=== PATIENT | male | born 1995 | race Caucasian/White ===

== ENCOUNTER 2016-07-07 17:07 | Emergency (ER) | payer BC ==
--- NOTE | 2016-07-07 17:51 | ERPHSYRPT ---
- History of Present Illness Time Seen by Provider: 07/07/16 17:45 Source: patient Exam Limitations: no limitations Patient Subjective Stated Complaint: PT REPORTS 2 DAYS AGO HE PUNCHED A STEEL DOOR WITH RIGHT HAND-REPROTS SWELLING ET PAIN TO RIGHT HAND-DENEIS NUMBNESS OR TINGLING-REPORTS FULL SENSATION Triage Nursing Assessment: PT PINK WARM ET DRY-SWELLING NOTED-RADIAL PULSE REGULAR ET STRONG-CAP REFILL WNL Physician History: This is a 20-year-old white male he arrives with complaint of pain and swelling of his right hand since punching a steel door yesterday at work. Patient states he became angry and punched a steel door he is having pain on his dorsal right hand proximal to the right third finger worse with movement he also has a approximately 1.5 cm eschar overlying the right metacarpal phalangeal joint #3. Patient is able to move his fingers he has sensation intact to his fingers he states he has pain worse with tight gripping Past medical history is negative. Past surgical history is negative. Occurred: yesterday Method of Injury: direct blow (punched a door) Extremities Pain Location: hand: right Modifying Factors: Improves With: movement Associated Symptoms: No back pain, No chills, No chest discomfort, No chest pain , No dyspnea, No fever, No jaw pain, No nausea, No neck pain, No sweating, No short of breath, No vomiting Allergies/Adverse Reactions: No Known Drug Allergies Allergy (Verified 07/07/16 17:15) Home Medications: No Home Meds 1 [facility] UD 02/05/16 [History] Hx Tetanus, Diphtheria Vaccination/Date Given: Yes Hx Influenza Vaccination/Date Given: No Hx Pneumococcal Vaccination/Date Given: No Immunizations Up to Date: Yes - Review of Systems Constitutional: No Fever, No Chills Eyes: No Symptoms Ears, Nose, & Throat: No Symptoms Respiratory: No Cough, No Dyspnea Cardiac: No Chest Pain, No Edema, No Syncope Abdominal/Gastrointestinal: No Abdominal Pain, No Nausea, No Vomiting, No Diarrhea Genitourinary Symptoms: No Dysuria Musculoskeletal: Other (pain right hand) Skin: Other (abrasion with eschar right hand overlying the dorsal third metacarpal phalangeal joint) Neurological: No Dizziness, No Focal Weakness, No Sensory Changes Psychological: No Symptoms Endocrine: No Symptoms All Other Systems: Reviewed and Negative - Past Medical History Pertinent Past Medical History: No - Past Surgical History Past Surgical History: No - Social History Smoking Status: Current every day smoker How long have you smoked: YRS Exposure to second hand smoke: No Drug Use: none Patient Lives Alone: No - Nursing Vital Signs Nursing Vital Signs: Initial Vital Signs Temperature 97.8 F Temperature Source Oral Pulse Rate 76 Respiratory Rate 16 Blood Pressure [] 124/59 Pain Intensity 2 - Physical Exam General Appearance: alert Eyes, Ears, Nose, Throat Exam: moist mucous membranes Neck Exam: non-tender, supple Cardiovascular/Respiratory Exam: chest non-tender, normal breath sounds, regular rate/rhythm, no respiratory distress Abdominal Exam: non-tender, No guarding Back Exam: normal inspection, No vertebral tenderness Shoulder Exam: normal inspection, non-tender, no evidence of injury, normal ROM Elbow/Forearm Exam: normal inspection, non-tender, no evidence of injury, normal ROM Wrist Exam: normal inspection, non-tender, no evidence of injury, normal ROM Hand Exam: No normal inspection (right hand tender dorsally just proximal to to the right third metacarpal phalangeal joint and including the right third metacarpal phalangeal joint, eschar 1.5 cm overlying dorsal right third MCP joint) Neuro/Tendon Exam: normal sensation, normal motor functions Mental Status Exam: alert, oriented x 3, cooperative Skin Exam: normal color, warm, dry SpO2 Interpretation: normal (99%) SpO2: 99 Oxygen Delivery: Room Air - Course Nursing assessment & vital signs reviewed: Yes - Radiology Exams Right Hand X-ray Interpretation: Interpreted by me, Negative, No Fracture, No Subluxation Ordered Tests: Active Orders 24 hr Category Date Time Status Splint STAT Care 07/07/16 18:06 Active Wound Care STAT Care 07/07/16 18:06 Active HAND (MINIMUM 3 VIEWS) Stat Exams 07/07/16 17:19 Taken Medication Summary Discontinued Medications Generic Name Dose Route Start Last Admin Trade Name Freq PRN Reason Stop Dose Admin Bacitracin 0.9 gm 07/07/16 18:06 07/07/16 18:23 Baciguent Packet TP 07/07/16 18:07 0.9 gm STAT ONE Administration Bacitracin Confirm 07/07/16 18:15 Baciguent Packet Administered 07/07/16 18:16 Dose 1 gm .ROUTE .STK-MED ONE - Progress Progress: improved Progress Note: 07/07/16 18:07 X-ray right hand negative fracture negative dislocation. Will go ahead and have nurses clean the abrasion/eschar on the dorsal right third metacarpal phalangeal joint. Will also have nurses apply a Velcro wristlet. Will write for Naprosyn for pain 07/07/16 18:08 Patient was offered pain medication in the emergency room he did not want any. - Departure Time of Disposition: 18:09 Departure Disposition: Home Clinical Impression: Contusion of right hand Qualifiers: Encounter type: initial encounter Qualified Code(s): S60.221A - Contusion of right hand, initial encounter Strain of right hand Qualifiers: Encounter type: initial encounter Qualified Code(s): S66.911A - Strain of unspecified muscle, fascia and tendon at wrist and hand level, right hand, initial encounter Abrasion of right hand Qualifiers: Encounter type: initial encounter Qualified Code(s): S60.511A - Abrasion of right hand, initial encounter Condition: Fair Critical Care Time: No Referrals: MAYNOR ROMERO [Primary Care Provider] - Additional Instructions: Return home. Clean area and apply bacitracin daily. Naprosyn 500 mg one orally twice a day with food as needed for pain #20. Ice and elevate right hand 24-48 hours. Follow-up with your company Dr. family Vega if problems symptoms no better in 48 hours or persist longer than one week. Return for acute distress or for severe symptoms. Prescriptions: Naproxen [Naprosyn] 500 mg PO BIDWMEALS #20 tablet
[2016-07-07 18:03] VITALS: BP 124/59; PULSE 76
[2016-07-07 18:04] VITALS: O2SAT 99
[2016-07-07] MEDS ORDERED: BACIGUENT PACKET TP ONE (18:06)
[2016-07-07] MEDS ORDERED: BACIGUENT PACKET ONE (18:15)
--- NOTE | 2016-07-08 08:08 | XRAY ---
Indication: Pain following punching injury. Comparison: None 3 views of the right hand obtained. No bony, articular, or soft tissue abnormalities.
== END 2016-07-07 18:33 | disposition home or self-care (01) ==
LOC: ED 17:07
DX: S60.221A Contusion of right hand, initial encounter (principal); S66.911A Strain of unspecified muscle, fascia and tendon at wrist and hand level, right hand, initial encounter; S60.511A Abrasion of right hand, initial encounter; M79.641 Pain in right hand; M79.89 Other specified soft tissue disorders; W22.09XA Striking against other stationary object, initial encounter; Y93.9 Activity, unspecified; Y92.69 Other specified industrial and construction area as the place of occurrence of the external cause; Y99.8 Other external cause status
CPT/HCPCS: 73130; 99283; 99284; L3908; A9270-GY

== ENCOUNTER 2017-04-07 20:51 | Emergency (ER) | payer BC ==
[2017-04-07 21:02] VITALS: O2SAT 98
[2017-04-07] MEDS ORDERED: Augmentin 875-125 Tablet PO ONE (21:09)
[2017-04-07] MEDS ORDERED: NORCO 5/325 MG PO ONE (21:09)
[2017-04-07] MEDS ORDERED: Augmentin 875-125 Tablet ONE (21:14)
[2017-04-07] MEDS ORDERED: NORCO 5/325 MG ONE (21:15)
--- NOTE | 2017-04-07 21:16 | ERPHSYRPT ---
- History of Present Illness Time Seen by Provider: 04/07/17 21:08 Source: patient Exam Limitations: no limitations Patient Subjective Stated Complaint: Pt states "I have this broken tooth and now there is this blister on my gums. I noticed it today" Triage Nursing Assessment: Pt alert and oriented X 3, skin pwd. Pt ambulates with an upright steady gait, able to speak in clear full sentences. Physician History: 21 y/o male comes to the ER with right upper tooth pain for the last few days. Pt describes the pain as sharp, constant, currently a 3/10 after taking advil. No fever or chills. Timing/Duration: gradual onset Severity: moderate ENT Location: dental Prearrival Treatment: over the counter meds Modifying Factors: Improves With: nothing Associated Symptoms: denies symptoms Allergies/Adverse Reactions: No Known Drug Allergies Allergy (Verified 07/07/16 17:15) Home Medications: No Home Meds [No Home Meds] 1 [facility] UD 02/05/16 [History] Hx Tetanus, Diphtheria Vaccination/Date Given: No Hx Influenza Vaccination/Date Given: No Hx Pneumococcal Vaccination/Date Given: No Immunizations Up to Date: Yes - Review of Systems Constitutional: No Fever, No Chills Eyes: No Symptoms Ears, Nose, & Throat: No Symptoms, Mouth Pain Respiratory: No Cough, No Dyspnea Cardiac: No Chest Pain, No Edema, No Syncope Abdominal/Gastrointestinal: No Abdominal Pain, No Nausea, No Vomiting, No Diarrhea Genitourinary Symptoms: No Dysuria Musculoskeletal: No Back Pain, No Neck Pain Skin: No Rash Neurological: No Dizziness, No Focal Weakness, No Sensory Changes Psychological: No Symptoms Endocrine: No Symptoms All Other Systems: Reviewed and Negative - Past Medical History Pertinent Past Medical History: No - Past Surgical History Past Surgical History: No - Social History Smoking Status: Current every day smoker How long have you smoked: 5 years Exposure to second hand smoke: Yes Drug Use: none Patient Lives Alone: No - Nursing Vital Signs Nursing Vital Signs: Initial Vital Signs Temperature 98.1 F 04/07/17 20:57 Pulse Rate 84 04/07/17 20:57 Respiratory Rate 18 04/07/17 20:57 Blood Pressure 146/100 04/07/17 20:57 O2 Sat by Pulse Oximetry 98 04/07/17 20:57 Pain Scale Pain Intensity 3 - Physical Exam General Appearance: no apparent distress, mild distress, alert Eye Exam: bilateral eye: PERRL, EOMI Nasal Exam: normal inspection Throat Exam: pharynx normal, moist mucus membranes, No tonsillar exudate Neck Exam: supple Cardiovascular/Respiratory Exam: normal breath sounds, regular rate/rhythm Abdominal Exam: non-tender, soft Neurologic Exam: alert, oriented x 3, sensation nml, No motor deficits Skin Exam: normal color, warm, dry SpO2: 98 Oxygen Delivery: Room Air - Course Nursing assessment & vital signs reviewed: Yes Ordered Tests: Medication Summary Discontinued Medications Generic Name Dose Route Start Last Admin Trade Name Freq PRN Reason Stop Dose Admin Hydrocodone Bitart/Acetaminophen 2 tab 04/07/17 21:09 [place] 5/325 Mg PO 04/07/17 21:10 SENT HOME W/ PATIENT ONE Amoxicillin/Clavulanate Potassium 875 mg 04/07/17 21:09 Augmentin 875-125 Tablet PO 04/07/17 21:10 STAT ONE - Progress Progress: unchanged Progress Note: 04/07/17 21:14 Pt will be started on augmentin and short course of norco for tooth infection. Pt has agreed to F/U with dentist next week. - Departure Time of Disposition: 21:15 Departure Disposition: Home Clinical Impression: Tooth infection Condition: Stable Critical Care Time: No Referrals: MAYNOR ROMERO [Primary Care Provider] - Instructions: Tooth Abscess (DC) Additional Instructions: Follow up with your dentist next week for further evaluation. Prescriptions: Amoxicillin/Potassium Clav [Augmentin 875-125 Tablet] 875 mg PO BID #19 tablet Hydrocodone Bit/Acetaminophen [[place] 5-325 Tablet] 1 each PO QID PRN #8 tablet MDD 4 PRN Reason: Pain
[2017-04-07 21:26] VITALS: BP 142/96; PULSE 80
== END 2017-04-07 21:38 | disposition home or self-care (01) ==
LOC: ED 20:51
DX: K04.7 Periapical abscess without sinus (principal); K08.89 Other specified disorders of teeth and supporting structures
CPT/HCPCS: 99283; A9270-GY

== ENCOUNTER 2018-03-03 23:54 | Emergency (ER) | payer BC ==
[2018-03-04 00:28] VITALS: O2SAT 99
[2018-03-04] MEDS ORDERED: XYLOCAINE 1% HCL 20 ML MDV ONE (00:43)
[2018-03-04] MEDS ORDERED: XYLOCAINE 1% HCL 20 ML MDV IJ ONE (00:44)
[2018-03-04] MEDS ORDERED: BACIGUENT PACKET TP ONE (00:44)
--- NOTE | 2018-03-04 00:44 | ERPHSYRPT ---
- History of Present Illness Time Seen by Provider: 03/04/18 00:35 Source: patient Exam Limitations: no limitations Patient Subjective Stated Complaint: Pt c/o swollen area to left side of face near jaw line. States that it has been present for appx one week. Pt has attempted to squeeze area and apply clearisil alcohol pads. States there was some pus like drainage on 03/02/18. Triage Nursing Assessment: Pt alert and oriented. Answers questions appropriately. Swollen, circular area noted to left side of face near jaw line. Several tiny scabs present on edematous area. No drainage at this time. Physician History: 22-year-old white male with history of dental just 5 , 1% abscesses in the past. Arrives with the complaint of a possible abscess on left side of his face for a week. He denies any fevers no nausea no vomiting. He has no tooth pain. Past medical history includes dental abscess. Timing/Duration: week(s) (one week) Severity: moderate Modifying Factors: Improves With: nothing Associated Symptoms: syncope, seizure, weakness, other (swelling left side of face x 1 week), No nausea, No vomiting, No abdominal pain, No shortness of breath, No heartburn, No diaphoresis, No cough, No chills, No chest pain, No fever (this), No headaches, No loss of appetite, No malaise, No rash Allergies/Adverse Reactions: No Known Drug Allergies Allergy (Verified 03/04/18 00:27) Hx Tetanus, Diphtheria Vaccination/Date Given: Yes Hx Influenza Vaccination/Date Given: No Hx Pneumococcal Vaccination/Date Given: No - Review of Systems Constitutional: No Fever, No Chills Eyes: No Symptoms Ears, Nose, & Throat: No Symptoms Respiratory: No Cough, No Dyspnea Cardiac: No Chest Pain, No Edema, No Syncope Abdominal/Gastrointestinal: No Abdominal Pain, No Nausea, No Vomiting, No Diarrhea Genitourinary Symptoms: No Dysuria Musculoskeletal: No Back Pain, No Neck Pain Skin: Other (swelling left side of jaw for 1 week) Neurological: No Dizziness, No Focal Weakness, No Sensory Changes Psychological: No Symptoms Endocrine: No Symptoms All Other Systems: Reviewed and Negative - Past Medical History Pertinent Past Medical History: No Neurological History: No Pertinent History ENT History: No Pertinent History Cardiac History: No Pertinent History Respiratory History: No Pertinent History Endocrine Medical History: No Pertinent History Musculoskeletal History: No Pertinent History GI Medical History: No Pertinent History History: No Pertinent History Psycho-Social History: No Pertinent History Male Reproductive Disorders: No Pertinent History - Past Surgical History Past Surgical History: Yes Neuro Surgical History: No Pertinent History Cardiac: No Pertinent History Respiratory: No Pertinent History Gastrointestinal: No Pertinent History Genitourinary: No Pertinent History Musculoskeletal: No Pertinent History Male Surgical History: No Pertinent History Other Surgical History: right dental abscess drained January 2017 - Social History Smoking Status: Current every day smoker How long have you smoked: 5 years Exposure to second hand smoke: Yes Drug Use: none Patient Lives Alone: No - Nursing Vital Signs Nursing Vital Signs: Initial Vital Signs Temperature 98.3 F 03/04/18 00:20 Pulse Rate 79 03/04/18 00:20 Respiratory Rate 16 03/04/18 00:20 Blood Pressure 144/89 03/04/18 00:20 O2 Sat by Pulse Oximetry 99 03/04/18 00:20 Pain Scale Pain Intensity 0 - Physical Exam General Appearance: no apparent distress, alert Eye Exam: PERRL/EOMI, eyes nml inspection Ears, Nose, Throat Exam: normal ENT inspection, TMs normal, pharynx normal, moist mucous membranes Neck Exam: normal inspection, non-tender, supple, full range of motion Respiratory Exam: normal breath sounds, lungs clear, No respiratory distress Cardiovascular Exam: regular rate/rhythm, normal heart sounds, normal peripheral pulses Gastrointestinal/Abdomen Exam: soft, normal bowel sounds, No tenderness, No mass Back Exam: normal inspection, normal range of motion, No CVA tenderness, No vertebral tenderness Extremity Exam: normal inspection, normal range of motion, pelvis stable Neurologic Exam: alert, oriented x 3, cooperative, 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 as tested, normal mood/affect, nml cerebellar function, nml station & gait, sensation nml, No motor deficits Skin Exam: other (1.5 cm soft swollen area left side of jaw) SpO2 Interpretation: normal (99%) SpO2: 99 Oxygen Delivery: Room Air - Course Nursing assessment & vital signs reviewed: Yes Ordered Tests: Active Orders 24 hr Category Date Time Status Wound Care STAT Care 03/04/18 00:44 Active Medication Summary Discontinued Medications Generic Name Dose Route Start Last Admin Trade Name Freq PRN Reason Stop Dose Admin Bacitracin Zinc 0.9 gm 03/04/18 00:44 Baciguent Packet TP 03/04/18 00:45 STAT ONE Lidocaine HCl 5 ml 03/04/18 00:44 Xylocaine 1% Hcl 20 Ml Mdv IJ 03/04/18 00:45 STAT ONE Lidocaine HCl Confirm 03/04/18 00:43 Xylocaine 1% Hcl 20 Ml Mdv Administered 03/04/18 00:44 Dose 5 ml .ROUTE .STK-MED ONE - Progress Progress: improved Progress Note: 03/04/18 01:01 Aspiration abscess left side of face overlying mandible. Left side of face sterilely cleansed by the patient's nurse. One percent lidocaine used for analgesia. #18-gauge needle used to aspirate abscess with production of moderate amount of purulent fluid. - Departure Time of Disposition: 01:02 Departure Disposition: Home Clinical Impression: Facial abscess Condition: Fair Critical Care Time: No Referrals: MAYNOR ROMERO [Primary Care Provider] - Additional Instructions: Return home. Keflex 500 mg orally every 6 hours 7 days Bactrim DS one orally twice a day for 10 days. Clean area and apply bacitracin daily. Follow-up with your family doctor. Return for acute distress or for severe symptoms. [place] as needed for pain. Prescriptions: Cephalexin Mh 500 mg [Keflex 500 mg] 500 mg PO Q6H #28 capsule Hydrocodone/Acetaminophen [[place] 5-325 Tablet] 1 tab PO Q4-6HPRN PRN #10 tablet MDD 6 tablets PRN Reason: Pain Smz/Tmp Ds Tablet [Bactrim Ds Tablet] 1 tab PO BID #20 tablet
[2018-03-04 01:06] VITALS: BP 119/102; PULSE 67
[2018-03-04] MEDS ORDERED: BACTRIM DS TABLET PO ONE ×2 (01:06→01:23)
[2018-03-04] MEDS ORDERED: BACIGUENT PACKET ONE (01:06)
[2018-03-04] MEDS ORDERED: KEFLEX 250 MG/5 ML SUSP PO ONE (01:06)
[2018-03-04] MEDS ORDERED: NORCO 5/325 MG PO ONE (01:06)
[2018-03-04] MEDS ORDERED: NORCO 5/325 MG ONE (01:23)
[2018-03-04] MEDS ORDERED: KEFLEX 500 MG ONE (01:23)
[2018-03-04] MEDS ORDERED: KEFLEX 500 MG PO ONE (01:33)
== END 2018-03-04 01:39 | disposition home or self-care (01) ==
LOC: ED 23:54
DX: L02.01 Cutaneous abscess of face (principal)
CPT/HCPCS: 10060; 87070; 87077; 87186; 96372; 99284; A9270-GY

== ENCOUNTER 2018-04-17 19:22 | Emergency (ER) | payer BC ==
--- NOTE | 2018-04-17 20:07 | ERPHSYRPT ---
- History of Present Illness Time Seen by Provider: 04/17/18 19:58 Source: patient Exam Limitations: no limitations Patient Subjective Stated Complaint: Dental pain Triage Nursing Assessment: Patient ambulated back to ED and transferred self to bed. Patient A+O X 3. Patient's skin pink, warm and dry. Patient complains of dental pain 6/10 to right upper tooth. Patient states he had an abscess drained in the same place 2016. Patient denies fever. Right side of face swollen. Right upper front tooth noted to be broken and decayed with gums red and swollen. Physician History: The patient is a 22-year-old male complaining of worsening right upper frontal dental pain and gum pain for 2 days. He has had a problem with this tooth 3 years ago. He has known dental caries. He denies fever or chills. He did not take anything for pain relief today. Timing/Duration: gradual onset, days (2) ENT Location: dental Prearrival Treatment: over the counter meds Modifying Factors: Improves With: nothing Associated Symptoms: facial pain/swelling, tooth pain Allergies/Adverse Reactions: No Known Drug Allergies Allergy (Verified 04/17/18 19:41) Hx Tetanus, Diphtheria Vaccination/Date Given: Yes Hx Influenza Vaccination/Date Given: No Hx Pneumococcal Vaccination/Date Given: No Immunizations Up to Date: Yes - Review of Systems Constitutional: No Fever, No Chills Eyes: No Symptoms Ears, Nose, & Throat: Mouth Pain Respiratory: No Cough, No Dyspnea Cardiac: No Chest Pain, No Edema, No Syncope Abdominal/Gastrointestinal: No Abdominal Pain, No Nausea, No Vomiting, No Diarrhea Genitourinary Symptoms: No Dysuria Musculoskeletal: No Back Pain, No Neck Pain Skin: No Rash Neurological: No Dizziness, No Focal Weakness, No Sensory Changes Psychological: No Symptoms Endocrine: No Symptoms Hematologic/Lymphatic: No Symptoms Immunological/Allergic: No Symptoms All Other Systems: Reviewed and Negative - Past Medical History Pertinent Past Medical History: No Neurological History: No Pertinent History ENT History: No Pertinent History Cardiac History: No Pertinent History Respiratory History: No Pertinent History Endocrine Medical History: No Pertinent History Musculoskeletal History: No Pertinent History GI Medical History: No Pertinent History History: No Pertinent History Psycho-Social History: No Pertinent History Male Reproductive Disorders: No Pertinent History - Past Surgical History Past Surgical History: Yes Neuro Surgical History: No Pertinent History Cardiac: No Pertinent History Respiratory: No Pertinent History Gastrointestinal: No Pertinent History Genitourinary: No Pertinent History Musculoskeletal: No Pertinent History Male Surgical History: No Pertinent History Other Surgical History: right dental abscess drained January 2017 - Social History Smoking Status: Current every day smoker How long have you smoked: 5 Exposure to second hand smoke: Yes Drug Use: none Patient Lives Alone: No - Nursing Vital Signs Nursing Vital Signs: Initial Vital Signs Temperature 98.0 F 04/17/18 19:42 Pulse Rate 98 H 04/17/18 19:42 Respiratory Rate 18 04/17/18 19:42 Blood Pressure 145/85 04/17/18 19:42 O2 Sat by Pulse Oximetry 100 04/17/18 19:42 Pain Scale Pain Intensity 6 - Physical Exam General Appearance: no apparent distress, alert Eye Exam: bilateral eye: PERRL, EOMI Ear Exam: bilateral ear: auricle normal Nasal Exam: normal inspection Throat Exam: dental tenderness (Examination of the dentition reveals significant caries throughout. The right upper anterior tooth is decayed. There is surrounding gum tissue erythema and tenderness. There is facial swelling overlying the dental abscess.) Neck Exam: supple Cardiovascular/Respiratory Exam: normal breath sounds, regular rate/rhythm Abdominal Exam: non-tender, soft Neurologic Exam: alert, oriented x 3, sensation nml, No motor deficits Skin Exam: normal color, warm, dry SpO2 Interpretation: normal SpO2: 100 O2 Delivery: Room Air - Progress Progress: improved Counseled pt/family regarding: diagnosis, need for follow-up - Departure Time of Disposition: 20:11 Departure Disposition: Home Clinical Impression: Dental abscess Condition: Stable Critical Care Time: No Referrals: MAYNOR ROMERO [Primary Care Provider] - Additional Instructions: You have a dental abscess. You were given Toradol 60 mg and Rocephin 1 g by IM in the ER. Tomorrow continue with penicillin 500 mg 4 times a day for 10 days. Take naproxen 500 mg 2 times a day as needed. Follow-up with the dentist within 1-2 weeks. Prescriptions: Naproxen 500 mg [Naprosyn 500 MG] 500 mg PO BIDPRN PRN #30 tablet MDD 2 PRN Reason: Pain Penicillin V Potassium 500 mg PO QID #40 tablet
[2018-04-17] MEDS ORDERED: TORAdol 30 mg Injection IM ONE (20:10)
[2018-04-17] MEDS ORDERED: Rocephin 1000 MG INJ IM ONE (20:10)
[2018-04-17] MEDS ORDERED: TORAdol 30 mg Injection ONE (20:13)
[2018-04-17] MEDS ORDERED: XYLOCAINE 1% HCL 20 ML MDV ONE (20:14)
[2018-04-17] MEDS ORDERED: Rocephin 1000 MG INJ ONE (20:14)
[2018-04-17 20:43] VITALS: BP 133/91; PULSE 77; O2SAT 99
== END 2018-04-17 20:44 | disposition home or self-care (01) ==
LOC: ED 19:22
DX: K04.7 Periapical abscess without sinus (principal)
CPT/HCPCS: 96372; 99284; J0696; J1885

== ENCOUNTER 2018-11-04 16:10 | Emergency (ER) | payer BC | END 2018-11-04 17:47 | disposition home or self-care (01) | LOC: ED 16:10 ==

== ENCOUNTER 2018-12-15 15:52 | Emergency (ER) | payer BC ==
[2018-12-15] MEDS ORDERED: Rocephin 1000 MG INJ IM ONE (16:08)
[2018-12-15] MEDS ORDERED: TORAdol 30 mg Injection IM ONE (16:08)
--- NOTE | 2018-12-15 16:14 | ERPHSYRPT ---
- History of Present Illness Time Seen by Provider: 12/15/18 16:11 Source: patient Exam Limitations: no limitations Patient Subjective Stated Complaint: pt reports dental abscess to the right lower molar and facial swelling to the right face. states he noticed the swelling sunday12/13/18. pt denies difficulty swallowing. Triage Nursing Assessment: pt is aox3, pupils perrl, afebrile, resps easy and non labored,resps easy and non labored, cap refill < 3 seconds, pt skin pink warm dry. extensive dental carries noted to entire dentition. lower right second molar noted to the broken, gums noted to be inflamed. swelling noted to the right lower face/jaw. Physician History: pt reports dental abscess to the right lower molar and facial swelling to the right face. states he noticed the swelling sunday12/13/18. pt denies difficulty swallowing. Timing/Duration: day(s) (2-3 days) Severity: moderate Associated Symptoms: denies symptoms Allergies/Adverse Reactions: No Known Drug Allergies Allergy (Verified 12/15/18 16:07) Hx Tetanus, Diphtheria Vaccination/Date Given: (unk) Hx Influenza Vaccination/Date Given: No Hx Pneumococcal Vaccination/Date Given: No Immunizations Up to Date: Yes - Review of Systems Constitutional: No Symptoms Eyes: No Symptoms Ears, Nose, & Throat: Loose Teeth Respiratory: No Symptoms Cardiac: No Symptoms Abdominal/Gastrointestinal: No Symptoms Musculoskeletal: No Symptoms Skin: No Symptoms - Past Medical History Pertinent Past Medical History: No Neurological History: No Pertinent History ENT History: No Pertinent History Cardiac History: No Pertinent History Respiratory History: No Pertinent History Endocrine Medical History: No Pertinent History Musculoskeletal History: No Pertinent History GI Medical History: No Pertinent History History: No Pertinent History Psycho-Social History: No Pertinent History Male Reproductive Disorders: No Pertinent History - Past Surgical History Past Surgical History: Yes Neuro Surgical History: No Pertinent History Cardiac: No Pertinent History Respiratory: No Pertinent History Gastrointestinal: No Pertinent History Genitourinary: No Pertinent History Musculoskeletal: No Pertinent History Male Surgical History: No Pertinent History Other Surgical History: right dental abscess drained January 2017 - Social History Smoking Status: Current every day smoker How long have you smoked: years Exposure to second hand smoke: Yes Drug Use: none Patient Lives Alone: No - Nursing Vital Signs Nursing Vital Signs: Initial Vital Signs Temperature 98.7 F 12/15/18 15:55 Pulse Rate 102 H 12/15/18 15:55 Respiratory Rate 18 12/15/18 15:55 Blood Pressure 145/97 12/15/18 15:55 Pain Scale Pain Intensity 3 - Physical Exam General Appearance: no apparent distress Eye Exam: PERRL/EOMI Ears, Nose, Throat Exam: other (premolar tooth decay right lower teeth) Neck Exam: normal inspection Respiratory Exam: normal breath sounds Cardiovascular Exam: regular rate/rhythm SpO2 Interpretation: normal - Course Nursing assessment & vital signs reviewed: Yes Ordered Tests: Medication Summary Discontinued Medications Generic Name Dose Route Start Last Admin Trade Name Lamontq PRN Reason Stop Dose Admin Ceftriaxone Sodium 1,000 mg 12/15/18 16:08 Rocephin 1000 Mg Inj IM 12/15/18 16:09 STAT ONE Ketorolac Tromethamine 60 mg 12/15/18 16:08 Toradol 30 Mg Injection IM 12/15/18 16:09 STAT ONE - Progress Progress: unchanged Counseled pt/family regarding: diagnosis, need for follow-up - Departure Departure Disposition: Home Clinical Impression: Periapical abscess Condition: Stable Critical Care Time: No Referrals: MAYNOR ROMERO [Primary Care Provider] - Instructions: Tooth Abscess (DC), Tooth Decay, Adult (DC) Additional Instructions: Discharge/Care Plan BALA DAWKINS was seen on 12/15/18 in the Emergency Room. The patient was counseled regarding Diagnosis,Lab results, Imaging studies, need for follow up and when to return to the Emergency Room. Prescriptions given: Discharge Note I have spoken with the patient and/or caregivers. I have explained the patient' s condition, diagnosis and treatment plan based on the information available to me at this time. I have answered the patient's and/or caregiver's questions and addressed any concerns. The patient and/or caregivers have as good understanding of the patient's diagnosis, condition and treatment plan as can be expected at this point. The vital signs have been stable. The patient's condition is stable and appropriate for discharge from the emergency department. The patient will pursue further outpatient evaluation with the primary care physician or other designated or consulting physician as outlined in the discharge instructions. The patient and/or caregivers are agreeable to this plan of care and follow-up instructions have been explained in detail. The patient and/or caregivers have received these instruction. The patient/and or caregivers are aware that any significant change in condition or worsening of symptoms should prompt an immediate return to this or the closest emergency department or call 911. Prescriptions: Cephalexin Mh 500 mg [Keflex 500 mg] 500 mg PO Q6H #40 capsule
[2018-12-15] MEDS ORDERED: Rocephin 1000 MG INJ ONE (16:15)
[2018-12-15] MEDS ORDERED: TORAdol 30 mg Injection ONE (16:15)
[2018-12-15] MEDS ORDERED: XYLOCAINE 1% HCL 20 ML MDV ONE (16:17)
[2018-12-15 16:47] VITALS: BP 140/89; PULSE 93; O2SAT 99
== END 2018-12-15 16:45 | disposition home or self-care (01) ==
LOC: ED 15:52
DX: K04.7 Periapical abscess without sinus (principal)
CPT/HCPCS: 96372; 99284; J0696; J1885

== ENCOUNTER 2019-04-21 01:53 | Emergency (ER) | payer BC ==
[2019-04-21] MEDS ORDERED: CLEOCIN 150 MG CAPSULE PO ONE (02:26)
[2019-04-21] MEDS ORDERED: MOTRIN 600 MG PO ONE (02:27)
--- NOTE | 2019-04-21 02:33 | ERPHSYRPT ---
- History of Present Illness Time Seen by Provider: 04/21/19 02:18 Source: patient Exam Limitations: no limitations Patient Subjective Stated Complaint: facial swelling Triage Nursing Assessment: pt to ED c/o L sided facial swelling, dental pain and possible abcess onset this afternooon. rates 1/10 dull pain. denies SOB, diff swallowing or eating/drinking. states hx dental abcesses, and has had one I &D done at [facility]. pt states has been trying to see dentist to get teeth removed but has not had a chance yet d/t work schedule. pt A&Ox3. ambulatory to room, to bed, and hooked up to vital monitor. lung sounds clear and equal bilat , heart sounds clear, audible bowel sounds in all 4 quads, cap refil <3 sec. Timing/Duration: yesterday, constant, gradual onset, worse Severity: moderate Allergies/Adverse Reactions: No Known Drug Allergies Allergy (Verified 04/21/19 02:19) Hx Tetanus, Diphtheria Vaccination/Date Given: (unk) Hx Influenza Vaccination/Date Given: No Hx Pneumococcal Vaccination/Date Given: No - Review of Systems Constitutional: No Symptoms Eyes: No Symptoms Ears, Nose, & Throat: Nose Congestion, Loose Teeth Respiratory: No Symptoms Cardiac: No Symptoms Abdominal/Gastrointestinal: No Symptoms Musculoskeletal: No Symptoms Skin: No Symptoms Neurological: No Symptoms Psychological: No Symptoms Endocrine: No Symptoms Hematologic/Lymphatic: No Symptoms Immunological/Allergic: No Symptoms - Past Medical History Pertinent Past Medical History: No Neurological History: No Pertinent History ENT History: No Pertinent History Cardiac History: No Pertinent History Respiratory History: No Pertinent History Endocrine Medical History: No Pertinent History Musculoskeletal History: No Pertinent History GI Medical History: No Pertinent History History: No Pertinent History Psycho-Social History: No Pertinent History Male Reproductive Disorders: No Pertinent History - Past Surgical History Past Surgical History: Yes Neuro Surgical History: No Pertinent History Cardiac: No Pertinent History Respiratory: No Pertinent History Gastrointestinal: No Pertinent History Genitourinary: No Pertinent History Musculoskeletal: No Pertinent History Male Surgical History: No Pertinent History Other Surgical History: right dental abscess drained January 2017 - Social History Smoking Status: Current every day smoker How long have you smoked: years Exposure to second hand smoke: Yes Drug Use: none Patient Lives Alone: No - Nursing Vital Signs Nursing Vital Signs: Initial Vital Signs Temperature 98.3 F 04/21/19 02:08 Pulse Rate 82 04/21/19 02:08 Respiratory Rate 18 04/21/19 02:08 Blood Pressure 134/76 04/21/19 02:08 O2 Sat by Pulse Oximetry 100 04/21/19 02:08 Pain Scale Pain Intensity 1 - Physical Exam General Appearance: no apparent distress, alert Eye Exam: eyes nml inspection Ears, Nose, Throat Exam: pharyngeal erythema, other (multiple dental caries with broken teeth/periodontal disease, swollen left upper gingiva with no fluctuation) Neck Exam: normal inspection, non-tender, supple, full range of motion Respiratory Exam: normal breath sounds, lungs clear Cardiovascular Exam: regular rate/rhythm, normal heart sounds Back Exam: normal inspection Extremity Exam: normal inspection Neurologic Exam: alert, oriented x 3, cooperative Skin Exam: normal color, warm SpO2 Interpretation: normal SpO2: 100 O2 Delivery: Room Air - Course Nursing assessment & vital signs reviewed: Yes Ordered Tests: Medication Summary Generic Name Dose Route Start Last Admin Trade Name Freq PRN Reason Stop Dose Admin Clindamycin HCl 600 mg 04/21/19 02:26 Cleocin 150 Mg Capsule PO 04/21/19 02:27 STAT ONE Ibuprofen 600 mg 04/21/19 02:27 Motrin 600 Mg PO 04/21/19 02:28 STAT ONE - Progress Progress: pain not gone completely, re-examined Progress Note: 04/21/19 02:33 will start on clindamycin and recommended outpatient dental follow up - Departure Departure Disposition: Home Clinical Impression: Tooth infection Condition: Stable Critical Care Time: No Referrals: MAYNOR ROMERO [Primary Care Provider] - (1-2 days ) Additional Instructions: follow up with dentist for re evaluation . return for any worsening Prescriptions: Ibuprofen 600 mg PO Q6HPRN PRN 10 Days #20 tablet PRN Reason: Pain Clindamycin HCl 150 mg [Cleocin 150 mg Capsule] 2 cap PO QID #56 capsule
[2019-04-21] MEDS ORDERED: MOTRIN 600 MG ONE (03:09)
[2019-04-21] MEDS ORDERED: CLEOCIN 150 MG CAPSULE ONE (03:10)
[2019-04-21 03:17] VITALS: BP 120/79; PULSE 79; O2SAT 97
== END 2019-04-21 03:22 | disposition home or self-care (01) ==
LOC: ED 01:53
DX: K04.7 Periapical abscess without sinus (principal)
CPT/HCPCS: 99283; A9270-GY

== ENCOUNTER 2020-06-01 04:24 | Emergency (ER) | payer BC ==
[2020-06-01 04:38] VITALS: BP 161/99; PULSE 76; O2SAT 97
[2020-06-01] MEDS ORDERED: TORAdol 30 mg Injection ONE (04:40)
[2020-06-01] MEDS ORDERED: TORAdol 30 mg Injection IM ONE (04:40)
--- NOTE | 2020-06-01 04:46 | ERPHSYRPT ---
- History of Present Illness Source: patient Patient Subjective Stated Complaint: pt states, "I have swelling to my face". Triage Nursing Assessment: pt c/o swelling to rt side of his face since Sunday, which comes and goes. Pt denies any pain to face or any teeth. Edema noted to rt side of face. Physician History: Dental pain w R facial edema x 3 days. Pt denies fever/trauma. He has an extremely poor dentition w many missing teeth and erosions to the gingiva. Timing/Duration: gradual onset Severity: moderate ENT Location: dental Prearrival Treatment: over the counter meds Associated Symptoms: facial pain/swelling, jaw pain, tooth pain, No ear pain (R), No ear pain (L), No cough, No fever, No chills, No change in hearing, No dizziness, No drooling, No ear drainage, No headache, No hearing loss, No malaise, No motion sickness, No nasal congestion/drainage, No epistaxis, No nasal foreign body, No neck pain, No poor fluid intake, No poor solids intake, No ringing of ears, No swollen glands, No sinus infection, No sore throat, No difficulty swallowing, No voice change Allergies/Adverse Reactions: No Known Drug Allergies Allergy (Verified 06/01/20 04:36) Hx Tetanus, Diphtheria Vaccination/Date Given: Yes Hx Influenza Vaccination/Date Given: No Hx Pneumococcal Vaccination/Date Given: No Immunizations Up to Date: Yes Travel Risk - International Travel Have you traveled outside of the country in past 3 weeks: No - Coronavirus Screening Are you exhibiting any of the following symptoms?: No Close contact with a COVID-19 positive Pt in past 14-21 Days: No - Review of Systems Constitutional: No Symptoms Eyes: No Symptoms Ears, Nose, & Throat: No Symptoms, Mouth Pain, Mouth Swelling Respiratory: No Symptoms Cardiac: No Symptoms Abdominal/Gastrointestinal: No Symptoms Genitourinary Symptoms: No Symptoms Musculoskeletal: No Symptoms Skin: No Symptoms Neurological: No Symptoms Psychological: No Symptoms Endocrine: No Symptoms Hematologic/Lymphatic: No Symptoms Immunological/Allergic: No Symptoms - Past Medical History Pertinent Past Medical History: No Neurological History: No Pertinent History ENT History: No Pertinent History Cardiac History: No Pertinent History Respiratory History: No Pertinent History Endocrine Medical History: No Pertinent History Musculoskeletal History: No Pertinent History GI Medical History: No Pertinent History History: No Pertinent History Psycho-Social History: No Pertinent History Male Reproductive Disorders: No Pertinent History Other Medical History: abscess tooth - Past Surgical History Past Surgical History: Yes Neuro Surgical History: No Pertinent History Cardiac: No Pertinent History Respiratory: No Pertinent History Gastrointestinal: No Pertinent History Genitourinary: No Pertinent History Musculoskeletal: No Pertinent History Male Surgical History: No Pertinent History Other Surgical History: right dental abscess drained January 2017. tongue clipped - Social History Smoking Status: Current every day smoker How long have you smoked: 6 yrs Exposure to second hand smoke: Yes Drug Use: none Patient Lives Alone: No Significant Family History: no pertinent family hx - Nursing Vital Signs Nursing Vital Signs: Initial Vital Signs Temperature 98.0 F 06/01/20 04:25 Pulse Rate 76 06/01/20 04:25 Respiratory Rate 16 06/01/20 04:25 Blood Pressure 161/99 06/01/20 04:25 O2 Sat by Pulse Oximetry 97 06/01/20 04:25 Pain Scale Pain Intensity 0 - Physical Exam General Appearance: no apparent distress Eye Exam: bilateral eye: normal inspection, PERRL, EOMI Ear Exam: bilateral ear: auricle normal, canal normal, TM normal Nasal Exam: normal inspection Throat Exam: dental tenderness (Very poor dentition w erosions to the gingiva of multiple teeth) Neck Exam: normal inspection, non-tender, supple, full range of motion Cardiovascular/Respiratory Exam: normal breath sounds, regular rate/rhythm, heart sounds normal Abdominal Exam: non-tender Neurologic Exam: alert, oriented x 3, cooperative, 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, normal mood/affect, nml cerebellar function, nml station & gait, sensation nml, No motor deficits, No sensory deficit Skin Exam: normal color, warm, dry SpO2 Interpretation: normal SpO2: 97 O2 Delivery: Room Air - Course Nursing assessment & vital signs reviewed: Yes - Progress Progress: improved Progress Note: 06/01/20 04:45 60mg IM Toradol Counseled pt/family regarding: need for follow-up (Dental follow for multiple extractions) - Departure Departure Disposition: Home Clinical Impression: Pain, dental Condition: Stable Critical Care Time: No Referrals: MAYNOR ROMERO [Primary Care Provider] - Instructions: Tooth Decay, Adult (DC), Dental Pain (DC), Tooth Extraction (DC) Additional Instructions: Dentist CHRISTINE Start penicillin Toradol as needed for pain Prescriptions: Penicillin V Potassium 500 mg PO TID #21 tablet Ketorolac Tromethamine [Toradol] 10 mg PO TID PRN #10 tablet PRN Reason: Pain
== END 2020-06-01 05:00 | disposition home or self-care (01) ==
LOC: ED 04:24
DX: K08.89 Other specified disorders of teeth and supporting structures (principal)
CPT/HCPCS: 96372; 99283; J1885

== ENCOUNTER 2020-12-09 15:05 | Emergency (ER) | payer BC ==
--- NOTE | 2020-12-09 15:08 | ERPHSYRPT ---
- History of Present Illness Time Seen by Provider: 12/09/20 15:07 Source: patient Exam Limitations: no limitations Physician History: This is a 25-year-old white male patient of Dr. Casillas who has chronic poor dentition. He has had several visits into this emergency department for tooth aches. Patient has not had a fever. He is again here complaints of tooth ache Timing/Duration: weeks Severity: mild (To moderate) ENT Location: dental Prearrival Treatment: over the counter meds Modifying Factors: Improves With: nothing Associated Symptoms: tooth pain, No facial pain/swelling Allergies/Adverse Reactions: No Known Drug Allergies Allergy (Verified 06/01/20 04:36) Hx Tetanus, Diphtheria Vaccination/Date Given: Yes Hx Influenza Vaccination/Date Given: No Hx Pneumococcal Vaccination/Date Given: No Travel Risk - International Travel Have you traveled outside of the country in past 3 weeks: No - Coronavirus Screening Are you exhibiting any of the following symptoms?: No Close contact with a COVID-19 positive Pt in past 14-21 Days: No - Review of Systems Constitutional: No Symptoms Eyes: No Symptoms Ears, Nose, & Throat: Other (Dental pain) Respiratory: No Symptoms Cardiac: No Symptoms Abdominal/Gastrointestinal: No Symptoms Genitourinary Symptoms: No Symptoms Musculoskeletal: No Symptoms Skin: No Symptoms Neurological: No Symptoms Psychological: No Symptoms Endocrine: No Symptoms Hematologic/Lymphatic: No Symptoms Immunological/Allergic: No Symptoms All Other Systems: Reviewed and Negative - Past Medical History Pertinent Past Medical History: No Neurological History: No Pertinent History ENT History: No Pertinent History Cardiac History: No Pertinent History Respiratory History: No Pertinent History Endocrine Medical History: No Pertinent History Musculoskeletal History: No Pertinent History GI Medical History: No Pertinent History History: No Pertinent History Psycho-Social History: No Pertinent History Male Reproductive Disorders: No Pertinent History Other Medical History: abscess tooth - Past Surgical History Past Surgical History: Yes Neuro Surgical History: No Pertinent History Cardiac: No Pertinent History Respiratory: No Pertinent History Gastrointestinal: No Pertinent History Genitourinary: No Pertinent History Musculoskeletal: No Pertinent History Male Surgical History: No Pertinent History Other Surgical History: right dental abscess drained January 2017. tongue clipped - Social History Smoking Status: Current every day smoker How long have you smoked: 6 yrs Exposure to second hand smoke: Yes Drug Use: none Patient Lives Alone: No Significant Family History: no pertinent family hx - Nursing Vital Signs Nursing Vital Signs: Initial Vital Signs Temperature 97.6 F 12/09/20 15:09 Pulse Rate 86 12/09/20 15:09 Respiratory Rate 16 12/09/20 15:09 Blood Pressure 127/79 12/09/20 15:09 O2 Sat by Pulse Oximetry 98 12/09/20 15:09 Pain Scale Pain Intensity 0 - Physical Exam General Appearance: no apparent distress, alert, anxiety Eye Exam: bilateral eye: normal inspection, PERRL, EOMI Ear Exam: bilateral ear: auricle normal Nasal Exam: normal inspection Throat Exam: dental tenderness (Right upper incisor with dental caries and fracture. 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 nml as tested, normal mood/affect, nml cerebellar function, nml station & gait, sensation nml Skin Exam: normal color, warm, dry SpO2 Interpretation: normal O2 Delivery: Room Air - Course Nursing assessment & vital signs reviewed: Yes - Progress Progress: unchanged, pain not gone completely Counseled pt/family regarding: diagnosis, need for follow-up - Departure Departure Disposition: Home Clinical Impression: Chronic dental pain, Chronic dental infection Condition: Stable Critical Care Time: No Referrals: MAYNOR CASILLAS [Primary Care Provider] - Additional Instructions: Use Tylenol and ibuprofen for pain control. Follow-up with dentist for definitive care. Take your medication as prescribed. Prescriptions: Amoxicillin 500 mg Cap [Amoxil 500 mg] 500 mg PO TID #30 cap
[2020-12-09 15:21] VITALS: BP 127/79; PULSE 86; O2SAT 98
== END 2020-12-09 15:35 | disposition home or self-care (01) ==
LOC: ED 15:05
DX: K08.89 Other specified disorders of teeth and supporting structures (principal); K04.7 Periapical abscess without sinus
CPT/HCPCS: 99283